=== PATIENT | female | born 1985 | race Caucasian/White ===

== ENCOUNTER → 2018-06-07 | Outpatient (CLI) | payer OTHER ==
--- NOTE | 2018-06-07 10:55 | US ---
EXAMINATION TYPE: US OB >= 14 wk fetus DATE OF EXAM: 06/07/2018 COMPARISON: None CLINICAL HISTORY: Z34.03 Encounter for supervision of normal first Growth TECHNIQUE: Transabdominal (TA) GESTATIONAL AGE / DATING Physician Established: (36 weeks/5 days) EDC: 06/30/18 Dates by LMP: unknown Dates by First Scan: No previous this is first scan here Dates by Current Scan: (36 weeks/2 days) EDC: 07/03/18 SURVEY IUP: Single PLACENTA: Anterior PREVIA: No Previa JULIO: 10.2 cm Normal CERVICAL LENGTH (transabdominal: norm > 3.0cm): 3.0 cm BIOMETRY PRESENTATION: Vertex LIE: Longitudinal BPD: 8.9 cm 36 weeks / 1 days HC: 32.3 cm 36 weeks / 4 days AC: 31.6 cm 35 weeks / 4 days FL: 7.1 cm 36 weeks / 3 days ESTIMATED WEIGHT IN GRAMS: 2800 grams ESTIMATED WEIGHT IN LBS/OZ: 6 lbs. 3 oz. WEIGHT PERCENTAGE BASED ON ESTABLISHED DATES: 33% HC/AC: 1.02 Normal FL/AC: 22% Normal HEART RATE: 128 bpm RHYTHM: Normal Single viable IUP 36wks/2days with DANIEL of 07/03/18 IMPRESSION: Single live intrauterine with a calculated sonographic age of 36 weeks and 2 days and estim ated date of delivery of 06/23/2018, concordant with menstrual age. Weight percentage based on establis hed dates is 33%.
== END | disposition home or self-care (01) ==
LOC: RADUSWWP 10:02
PROVIDERS: ATTEND Obstetrics & Gynecology
DX: Z34.03 Encounter for supervision of normal first pregnancy, third trimester (principal)
CPT/HCPCS: 76805